=== PATIENT | female | born 1970 | race Caucasian/White ===

== ENCOUNTER 2019-01-15 09:11 | Emergency (ER) | payer SELFPAY ==
--- NOTE | 2019-01-15 09:54 | ER Document Report ---
ED Medical Screen (RME) - General Chief Complaint: Shortness Of Breath Stated Complaint: COUGH Time Seen by Provider: 01/15/19 09:46 Primary Care Provider: ZARA WHITE MD [Primary Care Provider] - Follow up as needed TRAVEL OUTSIDE OF THE [place] IN LAST 30 DAYS: No - HPI Notes: 01/15/19 09:52 Patient is a 48-year-old female with a history of asthma, rheumatoid arthritis (on Humira with last injection a few days ago), mitral valve prolapse who presents complaining of chest heaviness/"feeling of something sitting on my chest" and SOB that began today with a semi productive cough x3 days. She is able to eat and drink without difficulty. She is urinating normally. Patient states that she was in a car for 12 hours 1 week ago. Denies any prolonged recent surgery/trauma, personal cancer history, hormone use, smoking, or previous DVT/PE. Denies MONTOYA, fever, neck pain, URI, n/v/d, Abd pain, dysuria, back pain, or rash. I have treated and performed a rapid initial assessment of this patient. A comprehensive ED assessment and evaluation of the patient, analysis of test results and completion of medical decision making process will be conducted by additional ED providers. PHYSICAL EXAMINATION: GENERAL: Well-appearing, well-nourished and in no acute distress. A&Ox4. Answers questions appropriately. LUNGS: Breath sounds clear to auscultation bilaterally and equal. No wheezes rales or rhonchi. HEART: Regular rate and rhythm without murmurs, rubs, gallops. Extremities: No cyanosis, clubbing, or edema b/l. Perri negative bilaterally. No lower extremity asymmetry. NEUROLOGICAL: Normal speech, normal gait. PSYCH: Normal mood, normal affect. - Related Data Allergies/Adverse Reactions: moxifloxacin HCl [From Avelox] Allergy (Verified 01/15/19 09:12) Penicillins Allergy (Verified 01/15/19 09:12) Sulfa (Sulfonamide Antibiotics) Allergy (Verified 01/15/19 09:12) fluoroquin Allergy (Uncoded 01/15/19 09:12) Past Medical History Pulmonary Medical History: Reports: Hx Asthma - Immunizations Hx Diphtheria, Pertussis, Tetanus Vaccination: Yes Physical Exam - Vital signs Vitals: Temp Pulse Resp BP Pulse Ox 98.0 F 79 18 116/49 L 98 08/05/19 09:27 01/15/19 09:27 01/15/19 09:27 01/15/19 09:27 01/15/19 09:27 Course - Vital Signs Vital signs: Temp Pulse Resp BP Pulse Ox 98.0 F 79 18 116/49 L 98 01/15/19 09:27 01/15/19 09:27 01/15/19 09:27 01/15/19 09:27 01/15/19 09:27 Doctor's Discharge - Discharge Referrals: ZARA WHITE MD [Primary Care Provider] - Follow up as needed
[2019-01-15 10:30] LABS: ABSOLUTE BASOPHILS # (AUTO) 0.1 10^3/uL (0.0-0.2); ABSOLUTE LYMPHOCYTES (AUTO) 1.7 10^3/uL (0.5-4.7); ABSOLUTE MONOCYTES (AUTO) 0.5 10^3/uL (0.1-1.4); ABSOLUTE NEUT (AUTO) 5.8 10^3/uL (1.7-8.2); BASOPHILS % (AUTO) 1.1 % (0-2); EOSINOPHILS % (AUTO) 0.5 % (0-6); HEMATOCRIT 42.6 % (36.0-47.0); HEMOGLOBIN 14.3 g/dL (12.0-15.5); LYMPHOCYTES % (AUTO) 21.1 % (13-45); MEAN CORPUSCULAR HEMOGLOBIN 30.6 pg (27.0-33.4); MEAN CORPUSCULAR HGB CONC 33.5 g/dL (32.0-36.0); MEAN CORPUSCULAR VOLUME 91 fl (80-97); MONOCYTES % (AUTO) 5.9 % (3-13); PLATELET COUNT 251 10^3/uL (150-450); RED BLOOD COUNT 4.67 10^6/uL (3.72-5.28); RED CELL DISTRIBUTION WIDTH 13.7 % (11.5-14.0); SEGMENTED NEUTROPHILS % (AUTO) 71.4 % (42-78); TOTAL CELLS COUNTED % (AUTO) 100 %; WHITE BLOOD COUNT 8.1 10^3/uL (4.0-10.5)
--- NOTE | 2019-01-15 10:40 | RADIOLOGY REPORT (SQ) ---
EXAM DESCRIPTION: CHEST 2 VIEWS COMPLETED DATE/TIME: 01/15/2019 10:30 am REASON FOR STUDY: cough, sob, cp COMPARISON: CT angio chest 08/25/2013 Two-view chest 08/25/2013 EXAM PARAMETERS: NUMBER OF VIEWS: two views TECHNIQUE: Digital Frontal and Lateral radiographic views of the chest acquired. RADIATION DOSE: NA LIMITATIONS: none FINDINGS: LUNGS AND PLEURA: No opacities, masses or pneumothorax. No pleural effusion. MEDIASTINUM AND HILAR STRUCTURES: No masses or contour abnormalities. HEART AND VASCULAR STRUCTURES: Heart normal size. No evidence for failure. BONES: No acute findings. HARDWARE: None in the chest. OTHER: No other significant finding. IMPRESSION: NO ACUTE RADIOGRAPHIC FINDING IN THE CHEST. TECHNICAL DOCUMENTATION: JOB ID: [id number] [employer]- All Rights Reserved Reading location - IP/workstation name: [email or web address]
[2019-01-15 11:10] LABS: NT PRO BNP 247 pg/mL (<125)
[2019-01-15 11:11] LABS: TROPONIN I < 0.012 ng/mL
[2019-01-15 11:19] LABS: ALBUMIN 4.5 g/dL (3.5-5.0); ALKALINE PHOSPHATASE 68 U/L (38-126); ANION GAP 6 (5-19); ASPARTATE AMINO TRANSFERASE 24 U/L (14-36); BILIRUBIN,DIRECT 0.2 mg/dL (0.0-0.4); BILIRUBIN,TOTAL 0.4 mg/dL (0.2-1.3); BLOOD UREA NITROGEN 15 mg/dL (7-20); CALCIUM 9.8 mg/dL (8.4-10.2); CARBON DIOXIDE 29 mmol/L (22-30); CHLORIDE 104 mmol/L (98-107); GLUCOSE 86 mg/dL (75-110); POTASSIUM 4.5 mmol/L (3.6-5.0)
[2019-01-15 12:03] LABS: APPEARANCE,URINE CLEAR; BILIRUBIN,URINE NEGATIVE (NEGATIVE); COLOR,URINE STRAW; GLUCOSE, URINE NEGATIVE (NEGATIVE); KETONES,URINE NEGATIVE (NEGATIVE); LEUKOCYTE ESTERASE,URINE NEGATIVE (NEGATIVE); NITRITE,URINE NEGATIVE (NEGATIVE); PROTEIN,URINE NEGATIVE (NEGATIVE); URINE SPECIFIC GRAVITY 1.015; UROBILINOGEN,URINE NEGATIVE mg/dL (<2.0)
--- NOTE | 2019-01-15 13:14 | EKG REPORT ---
SEVERITY:- ABNORMAL ECG - SINUS RHYTHM DIFFUSE NONSPECIFIC ST-T CHANGES : Confirmed by: Don Oneill MD 15-Jan-2019 13:14:20
[2019-01-15] MEDS ORDERED: FAMOTIDINE INJ/PF 20 MG/2 ML SDV IV ONE (13:41)
[2019-01-15] MEDS ORDERED: DIPHENHYDRAMINE HCL 50 MG/ML VIAL IV ONE (13:41)
[2019-01-15] MEDS ORDERED: METHYLPREDNISOLONE INJ 125 MG/2 ML SDV IV ONE (13:41)
--- NOTE | 2019-01-15 14:14 | RADIOLOGY REPORT (SQ) ---
EXAM DESCRIPTION: CTA CHEST COMPLETED DATE/TIME: 01/15/2019 2:01 pm REASON FOR STUDY: SOB, chest heaviness, recent travel COMPARISON: CT angio chest 08/25/2013 TECHNIQUE: CT scan of the chest performed using helical scanning technique with dynamic intravenous contrast injection. Images reviewed with lung, soft tissue and bone windows. Reconstructed coronal and sagittal MPR images reviewed. Additional 3 dimensional post-processing performed to develop Maximal Intensity Projection images (FL P). All images stored on PACS. All CT scanners at this facility use dose modulation, iterative reconstruction, and/or weight based d osing when appropriate to reduce radiation dose to as low as reasonably achievable (ALARA). [facility]: Dose Right [facility]: CareDose [facility]: Dose Right [facility]: Teradose 4D [facility]: Clean PET CONTRAST TYPE AND DOSE: contrast/concentration: Isovue 350.00 mg/ml; Total Contrast Delivered: 64.0 ml; Total Saline Delivered: 70.3 ml Contrast bolus optimized for the pulmonary arteries and thoracic aorta. RENAL FUNCTION: Creatinine 0.8 RADIATION DOSE: CT Rad equipment meets quality standard of care and radiation dose reduction techniq ues were employed. CTDIvol: 9.9 - 14.3 mGy. DLP: 517 mGy-cm. . LIMITATIONS: None. FINDINGS: LUNGS AND PLEURA: No masses, infiltrates, or pneumothorax. No pleural effusions or pleura l calcifications. AORTA AND GREAT VESSELS: No aneurysm. Contrast bolus not optimized for the aorta. HEART: No pericardial effusion. No significant coronary artery calcifications. PULMONARY ARTERIES: No emboli visualized in the main pulmonary arteries or the segmental branches. HILAR AND MEDIASTINAL STRUCTURES: No identified masses or abnormal nodes. HARDWARE: Bilateral retropectoral breast implants. UPPER ABDOMEN: No significant findings. Limited exam. THYROID AND OTHER SOFT TISSUES: No masses. No adenopathy. BONES: No acute or significant finding. 3D MIPS: Confirm above findings. OTHER: No other significant finding. IMPRESSION: NORMAL CTA OF THE CHEST. NO PULMONARY EMBOLI. COMMENT: Quality ID # [id number]: Final reports with documentation of one or more dose reduction techniques (e.g., Automated exposure control, adjustment of the mA and/or kV according to patient size, use of iterative reconstruction technique) TECHNICAL DOCUMENTATION: JOB ID: [id number] [employer]- All Rights Reserved Reading location - IP/workstation name: [email or web address]
--- NOTE | 2019-01-15 15:34 | ER Document Report ---
ED General - General Chief Complaint: Shortness Of Breath Stated Complaint: COUGH Time Seen by Provider: 01/15/19 09:46 Primary Care Provider: MIS REGALADO DO [NO LOCAL MD] - Follow up in 3-5 days ZARA WHITE MD [COMMUNITY BASED STAFF] - Follow up in 3-5 days TRAVEL OUTSIDE OF THE [place] IN LAST 30 DAYS: No - HPI Notes: 48 year old female to the ED with C/O shortness of breath that has been ongoing for the past two weeks and worsened since getting Humira shot this past . She states that since she has been having chest heaviness as well -- as if "someone is standing on my chest". She states that she also feels almost like her throat is tight. She reports she gets Humira for her RA treatment. She states that she gets Humira every other week. States she admits she started to feel off two injections ago but then after this most recent Humira injection, she got significantly worse. Does admit to recent travel two weeks ago as well. She states that she drove 12 hours. Denies leg swelling. She states that she fell and hurt her right forearm over december and she still has pain and swelling. She has several allergies and admits that some of what she is feeling is like when she begins to have her allergic reactions. Does not have an UTD epi pen at home. Denies any NV, diaphoresis, headache, shoulder pain, back pain. - Related Data Allergies/Adverse Reactions: moxifloxacin HCl [From Avelox] Allergy (Verified 01/15/19 09:12) Penicillins Allergy (Verified 01/15/19 09:12) Sulfa (Sulfonamide Antibiotics) Allergy (Verified 01/15/19 09:12) fluoroquin Allergy (Uncoded 01/15/19 09:12) Past Medical History - General Information source: Patient, Relative - Social History Smoking Status: Never Smoker Chew tobacco use (# tins/day): No Frequency of alcohol use: None Drug Abuse: None Family History: Reviewed & Not Pertinent Patient has suicidal ideation: No Patient has homicidal ideation: No Pulmonary Medical History: Reports: Hx Asthma Renal/ Medical History: Denies: Hx Peritoneal Dialysis - Immunizations Hx Diphtheria, Pertussis, Tetanus Vaccination: Yes Review of Systems - Review of Systems Constitutional: denies: Chills, Diaphoresis, Fever EENT: No symptoms reported, Throat pain Cardiovascular: Chest pain, Dyspnea. denies: Orthopnea, Syncope, Dizziness, Lightheaded Respiratory: Short of breath. denies: Cough, Wheezing Gastrointestinal: denies: Abdominal pain, Diarrhea, Nausea, Vomiting Genitourinary: No symptoms reported Musculoskeletal: No symptoms reported Skin: No symptoms reported Hematologic/Lymphatic: No symptoms reported Neurological/Psychological: No symptoms reported -: Yes All other systems reviewed and negative Physical Exam - Vital signs Vitals: Temp Pulse Resp BP Pulse Ox 98.0 F 79 18 116/49 L 98 01/15/19 09:27 01/15/19 09:27 01/15/19 09:27 01/15/19 09:27 01/15/19 09:27 Interpretation: Normal - General General appearance: Appears well, Alert - HEENT Head: Normocephalic, Atraumatic Eyes: Normal Pupils: PERRL Ears: Normal External canal: Normal Tympanic membrane: Normal Sinus: Normal Nasal: Normal Mouth/Lips: Normal Mucous membranes: Normal Pharynx: Normal. No: Peritonsillar abscess, Post nasal drainage, Retropharyngeal abscess, Tonsillar hypertrophy, Uvular edema, Potential airway comprom. Neck: Normal. No: Meningismus - Respiratory Respiratory status: No respiratory distress Chest status: Nontender Breath sounds: Normal Chest palpation: Normal - Cardiovascular Rhythm: Regular Heart sounds: Normal auscultation Murmur: No - Abdominal Inspection: Normal Distension: No distension Bowel sounds: Normal Tenderness: Nontender Organomegaly: No organomegaly - Back Back: Normal, Nontender - Extremities Forearm: Tender - mild TTP over the right forearm with no ecchymosis or defo rmity. non tender to palpation over the right elbow and wrist. hand feller operator is 5/5 strength bilaterally. Radial pulses intact and equal - Neurological Neuro grossly intact: Yes Cognition: Normal Orientation: AAOx4 Jerry Coma Scale Eye Opening: Spontaneous Jerry Coma Scale Verbal: Oriented [place] Coma Scale Motor: Obeys Commands Jerry Coma Scale Total: 15 Speech: Normal Motor strength normal: LUE, RUE, LLE, RLE Sensory: Normal - Psychological Associated symptoms: Normal affect, Normal mood - Skin Skin Temperature: Warm Skin Moisture: Dry Skin Color: Normal Course - Re-evaluation Re-evalutation: Will plan on giving patient medicine for allergic reaction and obtain CTA chest given her recent travel history. EKG is reassuring. Will obtain labs and monitor closely. Rounded on patient, updated about negative CTA. Patient states she feels so much better after steroids, pepcid, and benadryl. Got patient up and ambulated her and she states she feels much better. Noted negative forearm XR. Will have patient follow up with her java j2ee software engineer, Dr. Regalado and update about concern for allergic reaction to Humira. Will send home with medrol dose brodie. Patient agrees with the plan. Impression: Allergic reaction, SOB. Patient doing better since medicines for allergic reaction. Will discharge home with medrol dose brodie, benadryl, epi pen. Patient agrees with the plan. - Vital Signs Vital signs: Temp Pulse Resp BP Pulse Ox 98.7 F 75 17 102/54 L 99 01/15/19 15:49 01/15/19 15:49 01/15/19 15:49 01/15/19 15:49 01/15/19 15:49 - Laboratory Result Diagrams: 01/15/19 10:05 01/15/19 10:05 Laboratory results interpreted by me: 01/15/19 01/15/19 10:05 10:05 NT-Pro-B Natriuret Pep 247 H Urine Blood LARGE H - Diagnostic Test Radiology reviewed: Image reviewed, Reports reviewed - EKG Interpretation by Me EKG shows normal: Sinus rhythm Rate: Normal Rhythm: NSR When compared to previous EKG there are: No significant change Additional EKG results interpreted by me: NO STEMI, no ST CHANGES, no significant changes from prio Discharge - Discharge Clinical Impression: Shortness of breath Allergic reaction Qualifiers: Encounter type: initial encounter Qualified Code(s): T78.40XA - Allergy, unspecified, initial encounter Forearm injury Qualifiers: Encounter type: initial encounter Laterality: right Qualified Code(s): S59.911A - Unspecified injury of right forearm, initial encounter Condition: Stable Disposition: HOME, SELF-CARE Instructions: Acute Allergic Reaction ([facility]) Additional Instructions: STOP TAKING HUMIRA. FOLLOW UP WITH PRIMARY CARE. COMPLETE STEROID DOSE BRODIE. TAKE PEPCID. A NEW EPI PEN HAS BEEN WRITTEN FOR YOU. RETURN IF WORSENING SHORTNESS OF BREATH, FEVERS, WORSENING SYMPTOMS OR ANY OTHER COMPLAINTS. Prescriptions: Epinephrine [Epipen 2-Brodie] 0.3 mg IM ASDIR PRN #1 packet PRN Reason: Famotidine [Pepcid 20 mg Tablet] 20 mg PO DAILY #12 tablet Methylprednisolone [Medrol Dosepack (4 mg/Tab) 21 Tab/Dosepak] 4 mg PO ASDIR PRN #21 tab.ds.pk PRN Reason: Referrals: ZARA WHITE MD [COMMUNITY BASED STAFF] - Follow up in 3-5 days MIS REGALADO DO [NO LOCAL MD] - Follow up in 3-5 days
[2019-01-15 16:01] VITALS: BP 102/54
--- NOTE | 2019-01-15 16:12 | RADIOLOGY REPORT (SQ) ---
EXAM DESCRIPTION: FOREARM RIGHT COMPLETED DATE/TIME: 01/15/2019 3:26 pm REASON FOR STUDY: fall, forearm pain COMPARISON: None. NUMBER OF VIEWS: Two views. TECHNIQUE: Two radiographic images acquired of the right forearm, including elbow and wrist in at le ast one projection. LIMITATIONS: None. FINDINGS: MINERALIZATION: Normal. BONES: No acute fracture. No worrisome bone lesions. SOFT TISSUES: No obvious swelling or foreign body. OTHER: No other significant finding. IMPRESSION: NEGATIVE STUDY OF THE RIGHT FOREARM. NO RADIOGRAPHIC EVIDENCE OF ACUTE INJURY. TECHNICAL DOCUMENTATION: JOB ID: [id number] [employer].- All Rights Reserved Reading location - IP/workstation name: [email or web address]
== END 2019-01-15 16:01 | disposition home or self-care (01) ==
LOC: ER 09:11
DX: T78.40XA Allergy, unspecified, initial encounter (principal); S59.911A Unspecified injury of right forearm, initial encounter; W19.XXXA Unspecified fall, initial encounter; J45.909 Unspecified asthma, uncomplicated; R06.02 Shortness of breath; R07.9 Chest pain, unspecified; M06.9 Rheumatoid arthritis, unspecified; Z79.899 Other long term (current) drug therapy; Z88.1 Allergy status to other antibiotic agents; Z88.0 Allergy status to penicillin; Z88.2 Allergy status to sulfonamides
CPT/HCPCS: 93005; 99285; 96374; 96375; 36415; 84443; 85025; 81025; 80053; 81001; 84484; 83880; 71046; 73090; 71275; 93010; J1200; J2930; S0028

== ENCOUNTER → 2020-01-10 | Day surgery (SDC) | payer BC ==
--- NOTE | 2020-01-10 16:17 | RADIOLOGY REPORT (SQ) ---
EXAM DESCRIPTION: ARTHRO WRIST INJECTION; FLUORO/NEEDLE PLACEMENT IMAGES COMPLETED DATE/TIME: 01/10/2020 3:38 pm REASON FOR STUDY: M25.531 PAIN IN RIGHT WRIST M25.531 PAIN IN RIGHT WRIST COMPARISON: None. FLUOROSCOPY TIME: 4 seconds 1 images saved to PACS. LIMITATIONS: None. PROCEDURE: Procedure, risks, benefits and alternatives explained to patient who then gave written co nsent. The right wrist was marked and a time-out was called for correct marking verification. Radioc arpal site marked using fluoroscopic guidance. Wrist prepped and draped using sterile technique. Lo es anesthesia achieved using 1% lidocaine injection. Hypodermic needle introduced into the joint sp jf under direct fluoroscopic visualization. Non-ionic contrast instilled to confirm intra-articular position. Dilute gadolinium solution then injected. Needle removed and entry site covered with steri le bandage. No immediate complications noted. TECHNIQUE: Digital images acquired during fluoroscopy and stored on PACS. Patient immediately take n to the MR suite for additional imaging. INJECTION LOCATION: Right wrist. CONTRAST TYPE AND AMOUNT: 0.2 cc Omnipaque 1.5 cc Prohance/Saline mixture. IMPRESSION: SUCCESSFUL NEEDLE PLACEMENT AND INJECTION FOR RIGHT WRIST MR ARTHROGRAM. COMMENT: Quality ID #[id number]: Final reports for procedures using fluoroscopy that document radiation exp osure indices, or exposure time and number of fluorographic images (if radiation exposure indices are not available) TECHNICAL DOCUMENTATION: JOB ID: [id number] 2010 [employer]- All Rights Reserved Reading location - IP/workstation name: [email or web address]
--- NOTE | 2020-01-10 16:17 | RADIOLOGY REPORT (SQ) ---
EXAM DESCRIPTION: ARTHRO WRIST INJECTION; FLUORO/NEEDLE PLACEMENT IMAGES COMPLETED DATE/TIME: 01/10/2020 3:38 pm REASON FOR STUDY: M25.531 PAIN IN RIGHT WRIST M25.531 PAIN IN RIGHT WRIST COMPARISON: None. FLUOROSCOPY TIME: 4 seconds 1 images saved to PACS. LIMITATIONS: None. PROCEDURE: Procedure, risks, benefits and alternatives explained to patient who then gave written co nsent. The right wrist was marked and a time-out was called for correct marking verification. Radioc arpal site marked using fluoroscopic guidance. Wrist prepped and draped using sterile technique. Lo es anesthesia achieved using 1% lidocaine injection. Hypodermic needle introduced into the joint sp jf under direct fluoroscopic visualization. Non-ionic contrast instilled to confirm intra-articular position. Dilute gadolinium solution then injected. Needle removed and entry site covered with steri le bandage. No immediate complications noted. TECHNIQUE: Digital images acquired during fluoroscopy and stored on PACS. Patient immediately take n to the MR suite for additional imaging. INJECTION LOCATION: Right wrist. CONTRAST TYPE AND AMOUNT: 0.2 cc Omnipaque 1.5 cc Prohance/Saline mixture. IMPRESSION: SUCCESSFUL NEEDLE PLACEMENT AND INJECTION FOR RIGHT WRIST MR ARTHROGRAM. COMMENT: Quality ID #[id number]: Final reports for procedures using fluoroscopy that document radiation exp osure indices, or exposure time and number of fluorographic images (if radiation exposure indices are not available) TECHNICAL DOCUMENTATION: JOB ID: [id number] 2010 [employer]- All Rights Reserved Reading location - IP/workstation name: [email or web address]
--- NOTE | 2020-01-10 16:32 | RADIOLOGY REPORT (SQ) ---
EXAM DESCRIPTION: MRI RT UPPER JOINT WITH IMAGES COMPLETED DATE/TIME: 01/10/2020 4:06 pm REASON FOR STUDY: M25.531 PAIN IN RIGHT WRIST M25.531 PAIN IN RIGHT WRIST COMPARISON: None. TECHNIQUE: Right wrist post-arthrogram imaging includes T1 and T1 and T2 fat sat sequences. LIMITATIONS: None. FINDINGS: JOINT DISTENSION: Adequate. No loose body. BONE MARROW: No alteration of signal to suggest marrow replacement or edema. No occult fracture. No l arge osteophytes. CARPAL ALIGNMENT AND ARTICULATION: Normal congruity of sigmoid notch at level of distal ruj without p ositive or negative ulnar variance. Normal capitolunate angle. No widening of scapholunate articulati on. SCAPHOLUNATE LIGAMENT: Intact. LUNATO-TRIQUETRAL LIGAMENT: Intact. TFC COMPLEX: Radial and ulnar attachments normal. Meniscus intact. Extensor carpi ulnaris tendon norm al without tendinopathy. No contrast in distal RUJ. EXTRINSIC LIGAMENTS AND DISTAL RADIO-ULNAR JOINT: Dorsal and volar distal RUJ ligaments intact withou t subluxation of the distal ulna with respect to the radius. 1-6 EXTENSOR COMPARTMENTS: Normal. CARPAL TUNNEL AND MEDIAN NERVE: Normal volume and morphology of carpal tunnel proximal at the level o f the radiocarpal joint and distally at the hook of the hamate. No thickening or signal alteration of median nerve. OTHER: Along the volar aspect of the ulnar styloid and triangular fibrocartilage, 10 x 10 mm cystic l esion containing contrast consistent with a synovial cyst. Approximately 20 mm craniocaudal diameter . IMPRESSION: Synovial cyst volar to the ulnar styloid and triangular fibrocartilage. TECHNICAL DOCUMENTATION: JOB ID: [id number] 2010 [employer]- All Rights Reserved Reading location - IP/workstation name: [email or web address]
== END ==
LOC: RAD 14:37
PROVIDERS: ATTEND Orthopaedic Surgery Sports Medicine
DX: M25.531 Pain in right wrist (principal)
CPT/HCPCS: 73222; 25246; 77002; A9576